=== PATIENT | female | born 1985 | race African-American/Black ===

== ENCOUNTER 2016-10-28 10:45 | Emergency (ER) | payer BC, OTHER ==
--- NOTE | 2016-10-28 11:46 | OBHP ---
Datetime: 10/28/2016 11:41 IP Adm Impression: Term, intrauterine IP Admit Plan: Discharge home Admit Comment, IP Provider: @ 37.5 wks c/o of decreased movmenets and vaginal discharge, denies ctx, vb. OB: x 1 FT, SAB x 3 [employer]: yuri hx of abnormal pap, fibroids, ovarian cyst, STI PMH: deies PSH; yuri FHX; non contibutory SHX: engateiv x 3 MEDS: PNV BPP 10/23 JULIO 6cm VE: /-2 VTX int act negative pooling A/P P1 @ 37.5 wks GA with Decreased movements with matneral and reassuring and well be ing - kick counts -f/u Saturday -labor precatuins -f/u BPP Pelvic Type - PN: Adequate Extremities - PN: Normal Abdomen - PN: Normal Back - PN: Normal Breast - PN: Not Done Lungs - PN: Normal Heart - PN: Normal Thyroid - PN: Normal Neurologic - PN: Normal HEENT - PN: Normal General - PN: Normal Presentation-Admit: Vertex FHR - Baseline A Provider: 135 Membranes, Provider: Ruptured Contraction Comments Provider: q 8 min Gestation - Est Wks by US: 37.5 IP Hx Assessment: The History has been Reviewed and is Current EGA AdmitDate IP: 37.5 Vital Signs Provider: Reviewed; Within Normal Limits IP Chief Complaint: Decreased movement NICHD Variability Prov Fetus A: Moderate 6-25bpm NICHD Accel Fetus A IP Provider: 15X15 FHR Category Provider Fetus A: Category I NICHD Decel Fetus A IP Provider: None Dilatation, Provider: 4 Effacement, Provider: 50 Station, Provider: -2 Genitourinary Exam: Normal DTRs - PN: Normal
--- NOTE | 2016-10-28 11:46 | OBDCSUM ---
Datetime: 10/28/2016 11:36 Discharged to, Provider: Home Follow up at, Provider: Dr Heath on saturday10-30-2016 Disch Instr Activity: Normal activity Disch Instr Diet: Regular Discharge Time: 10/28/2016 11:36 Disch Referrals: None Disch Activity Restrictions: No exercising; No lifting; No driving; Minimize walking; Minimize stair -climbing Discharge Comment, Provider: kick counts RTO saturday labor precautions
[2016-10-28 18:04] VITALS: BP 118/76; PULSE 89; RESP 18; TEMP 97; O2SAT 99
== END 2016-10-28 12:00 | disposition home or self-care (01) ==
LOC: C.EROB 10:45
DX: O36.8130 Decreased fetal movements, third trimester, not applicable or unspecified (principal); Z3A.37 37 weeks gestation of pregnancy

== ENCOUNTER 2016-10-30 19:48 | Inpatient (IN) | payer BC, OTHER ==
[2016-10-30] MEDS ORDERED: Oxytocin 30 UNIT 30 UNITS/500 ML BAG IV SCH (20:15)
--- NOTE | 2016-10-30 20:16 | OBHP ---
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 hx of aborma pap, fibroi, ovar yanet cyst, hx of herpes on Valtrex PMH: denies PSH: dXC MEDS: Valtrex, PNV A/P @ 38 wks in active labor admit to npo, ivf admission labs cont toco and efm analgies prn Pelvic Type - PN: Adequate Extremities - PN: Normal Abdomen - PN: Normal Back - PN: Normal Breast - PN: Normal Lungs - PN: Normal Heart - PN: Normal Thyroid - PN: Normal Neurologic - PN: Normal HEENT - PN: Normal General - PN: Normal Weight - Estimated: 3400 Presentation-Admit: Vertex FHR - Baseline A Provider: 150 Membranes, Provider: Bulging Contraction Comments Provider: q 3-4 min Comments, ACOG Physical Exam: exam, no active lesions Gestation - Est Wks by US: 38.0 IP Hx Assessment: The History has been Reviewed and is Current EGA AdmitDate IP: 38.0 Vital Signs Provider: Reviewed; Within Normal Limits IP Chief Complaint: Uterine contractions; Vaginal bleeding NICHD Variability Prov Fetus A: Moderate 6-25bpm NICHD Accel Fetus A IP Provider: 10X10 FHR Category Provider Fetus A: Category I NICHD Decel Fetus A IP Provider: None Dilatation, Provider: 5 Effacement, Provider: 60 Station, Provider: -2 Genitourinary Exam: Normal DTRs - PN: Normal
[2016-10-30] MEDS ORDERED: Penicillin G 5 Million Unit Vial IVPB ONE ×2 (20:25→21:01)
--- NOTE | 2016-10-30 20:25 | OBADHP ---
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 hx of aborma pap, fibroi, ovar yanet cyst, hx of herpes on Valtrex PMH: denies PSH: dXC MEDS: Valtrex, PNV A/P @ 38 wks in active labor admit to npo, ivf admission labs cont toco and efm analgies prn Pelvic Type - PN: Adequate Extremities - PN: Normal Abdomen - PN: Normal Back - PN: Normal Breast - PN: Normal Lungs - PN: Normal Heart - PN: Normal Thyroid - PN: Normal Neurologic - PN: Normal HEENT - PN: Normal General - PN: Normal Weight - Estimated: 3400 Presentation-Admit: Vertex FHR - Baseline A Provider: 150 Membranes, Provider: Bulging Contraction Comments Provider: q 3-4 min Comments, ACOG Physical Exam: exam, no active lesions Gestation - Est Wks by US: 38.0 IP Hx Assessment: The History has been Reviewed and is Current Vital Signs Provider: Reviewed; Within Normal Limits IP Chief Complaint: Uterine contractions; Vaginal bleeding NICHD Variability Prov Fetus A: Moderate 6-25bpm NICHD Accel Fetus A IP Provider: 10X10 FHR Category Provider Fetus A: Category I NICHD Decel Fetus A IP Provider: None Dilatation, Provider: 5 Effacement, Provider: 60 Station, Provider: -2 Genitourinary Exam: Normal DTRs - PN: Normal EGA AdmitDate IP: 38.0 IP Adm Impression: Term, intrauterine IP Admit Plan: Admit to unit; Initiate labor protocol
[2016-10-30] MEDS ORDERED: Oxytocin 30 UNIT 30 UNITS/500 ML BAG IV ONE (21:03)
[2016-10-30 21:04] LABS: BASO # 0.1 K/uL (0.0-0.2); BASO % 0.4 % (0.0-2.0); EOS # 0.2 K/uL (0.0-0.7); EOS % 1.2 % (0.0-4.0); HEMATOCRIT 35.5 % (34.0-47.0); LYMPH % 21.8 % (20.0-40.0); MEAN CELL VOLUME 85.9 fL (81.0-99.0); MEAN CORPUSCULAR HEMOGLOBIN 29.5 pg (27.0-31.0); MEAN CORPUSCULAR HGB CONC 34.4 g/dL (33.0-37.0); MEAN PLATELET VOLUME 10.3 fL (7.2-11.7); MONO # 0.9 K/uL (0.0-0.8); MONO % 6.6 % (0.0-10.0); WHITE BLOOD COUNT 13.9 K/uL (4.8-10.8)
[2016-10-30 21:12] LABS: CHLORIDE 102 mmol/L (98-107)
[2016-10-30 21:13] LABS: POTASSIUM 4.1 mmol/L (3.6-5.2); SODIUM 134 mmol/L (132-148)
[2016-10-30 21:15] LABS: ALB/GLOB RATIO 1.1 (1.0-2.1); AST/SGOT 15 U/L (14-36); BILIRUBIN,TOTAL 0.6 mg/dL (0.2-1.3); BLOOD UREA NITROGEN 3 mg/dL (7-17); CARBON DIOXIDE 24 mmol/L (22-30); GFR AFRICAN-AMERICAN > 60; TOTAL PROTEIN 6.7 g/dL (6.3-8.3)
[2016-10-30 21:16] LABS: ALKALINE PHOSPHATASE 141 U/L (38-126); ALT/SGPT 24 U/L (9-52); CALCIUM 9.5 mg/dl (8.6-10.4); GLUCOSE,RANDOM 76 mg/dL (65-105)
[2016-10-30 21:22] LABS: RBC URINE 20 /hpf (0-3); URINE BACTERIA FEW (<OCC); URINE BILIRUBIN NEGATIVE (NEGATIVE); URINE BLOOD 3+ (NEGATIVE); URINE COLOR Yellow (YELLOW); URINE GLUCOSE (UA) NORMAL (Normal); URINE KETONE NEGATIVE (NEGATIVE); URINE LEUKOCYTE ESTERASE 3+ Leu/uL (Negative); URINE PROTEIN NEGATIVE (NEGATIVE); URINE UROBILINOGEN NORMAL mg/dL (0.2-1.0); WBC URINE 71 /hpf (0-5)
[2016-10-30] MEDS: Lactated Ringer's 1,000 ML IV SCH (21:29)
[2016-10-31] MEDS ORDERED: Bupivacaine 0.125%/FentaNYL 200 ML EPI ONE (00:04)
[2016-10-31] MEDS: Lactated Ringer's 1,000 ML IV SCH ×2 (02:00)
[2016-10-31] MEDS ORDERED: Oxycodone/Acetaminophen 5/325 mg Tab PO PRN ×2 (02:31)
[2016-10-31] MEDS ORDERED: Benzocaine/Menthol 20%-0.5% Topical Spray (60 ml) TOP PRN (02:31)
[2016-10-31] MEDS ORDERED: Lidocaine 2% Inj (20ml) ONE (02:52)
--- NOTE | 2016-10-31 03:19 | OBDS ---
DELIVERY PERSONNEL Nurse Hand Therapist Certified: N/A Delivery Doctor: Talia Heath MD Scrub Nurse: N/A Corporate Planner: Angelina Brower RN Anesthesiologist: DR VAZ Filtrose Crusher: N/A Resident: N/A MATERNAL INFORMATION Delivery Anesthesia: Local Medications in Delivery: PITOCIN Estimated Blood Loss (ml): 200 Placenta Cultured: No Maternal Complications: None Provider Comments: pt was fully dilated and pushing. Band noted with no progress of head. verbal con sent give for episitomy and reports had previous episitomy Atruacmic, spontaneous delive rof head, f ollowed by delivery of anterior followed by posterior shoulder followed by delivery of body. Both ora l and nsaal passages of gissell baby were bulb suctioned .Umbilical cord was clamped and cut. Baby handed to mother on abdomen wt rn assistance. Cord blood collected and sent x 2. Spontaneous delivery of i ntact placenta with membranes. Biminal massage, funud firm. good hemostasis. Right mediolaterl epis itomy repaired with local anesthetic and 2-0 chromic. Good hemostasis no complications. live male inanta cephalic presentation agps 9/9 weight of 6lbs 14 ounces ebl 200ml LABOR SUMMARY EDC: 11/13/2016 00:00 No. Babies in Womb: 1 Attempted: No Labor Anesthesia: Epidural LABOR INFORMATION Onset of Labor: 10/30/2016 15:00 Complete Dilatation: 10/31/2016 02:28 Oxytocin: Augmentation Group B Beta Strep: Done, Result Unknown Antibiotics # of Doses: 2 Antibiotics Time of Last Dose: 0100 10/31/2016 MEMBRANES Membranes Rupture Method: Artificial Rupture of Membranes: 10/30/2016 20:38 Length of Rupture (hrs): 6.25 Amniotic Fluid Color: Clear Amniotic Fluid Amount: Moderate Amniotic Fluid Odor: Normal STAGES OF LABOR Stage 1 hrs: 11 Stage 1 min: 28 Stage 2 hrs: 0 Stage 2 min: 25 Stage 3 hrs: 0 Stage 3 min: 4 Total Time in Labor hrs: 11 Total Time in Labor min: 57 VAGINAL DELIVERY Episiotomy: Right Mediolateral Laceration Extension: N/A Laceration Type: None Laceration Repair: Yes Laceration Repair Note: RML episiotmy repaired with lidocine local anesthesi and 2-[address] Initial Vag Sponge Count: 1 LAP, 10 X-RAYS Final Vag Sponge Count: 1 LAP, 10 X-RAYS Initial Vag Sharps Count: 0 Final Vag Sharps Count: 1 Sponge Count Correct: Yes Count Comment: count correct BABY A INFORMATION Delivery Date/Time: 10/31/2016 02:53 Method of Delivery: Vaginal Born in Route : No : N/A Forceps: N/A Vacuum Extraction: N/A Shoulder Dystocia : No SHOULDER DYSTOCIA BABY A Delivery Date/Time: 10/31/2016 02:53 PRESENTATION/POSITION BABY A Presentation: Cephalic Cephalic Presentation: Vertex Breech Presentation: N/A PLACENTA INFORMATION BABY A Placenta Delivery Time : 10/31/2016 02:57 Placenta Method of Delivery: Spontaneous Placenta Status: Delivered SCORES BABY A Heart Rate 1 min: >100 bpm Resp Effort 1 min: Good Cry Reflex Irritability 1 min: Cough or Sneeze or Pulls Away Muscle Tone 1 min: Active Motion Color 1 min: Body Red Jacket, Extremities Blue Resuscitation Effort 1 min: N/A SCORE 1 MIN: 9 Heart Rate 5 min: >100 bpm Resp Effort 5 min: Good Cry Reflex Irritability 5 min: Cough or Sneeze or Pulls Away Muscle Tone 5 min: Active Motion Color 5 min: Body Red Jacket, Extremities Blue Resuscitation Effort 5 min: N/A SCORE 5 MIN: 9 INFORMATION BABY A Gestational Age at Delivery: 38.1 Gestational Status: Term Infant Outcome : Liveborn Infant Condition : Stable Infant Sex: Male IDENTIFICATION/MEDS BABY A ID Band Number: [id number] Sensor Applied: Yes Sensor Number: [id number] Sensor Location : Cord Clamp Vitamin K Given : Not Given Erythromycin Given: Not Given WEIGHT/LENGTH BABY A Birthweight (gms): 3110 Infant Weight (lb): 6 Weight (oz): 14 Length Inches: 19.00 Infant Length cms: 48.3 CORD INFORMATION BABY A No. Cord Vessels: #3 Nuchal Cord : N/A Nuchal Cord Other: none True Knot: 0 Cord Blood Taken: Yes Suction: None ASSESSMENT BABY A Infant Complications: None Infant Complications Other: none Physical Findings at Delivery: Within Normal Limits Respirations: Appears Normal Student Development Dean/ALS Called : No Infant Care By: Shon KELLY RN Transferred To: Nursery
[2016-10-31] MEDS: Multiple Vitamins Tab PO SCH (10:15)
[2016-11-01 07:49] LABS: BASO # 0.1 K/uL (0.0-0.2); BASO % 0.5 % (0.0-2.0); EOS # 0.3 K/uL (0.0-0.7); EOS % 2.1 % (0.0-4.0); HEMATOCRIT 32.4 % (34.0-47.0); LYMPH # 3.9 K/uL (1.0-4.3); LYMPH % 27.2 % (20.0-40.0); MEAN CORPUSCULAR HEMOGLOBIN 29.4 pg (27.0-31.0); MEAN CORPUSCULAR HGB CONC 33.8 g/dL (33.0-37.0); MEAN PLATELET VOLUME 10.4 fL (7.2-11.7); MONO # 0.8 K/uL (0.0-0.8); MONO % 5.7 % (0.0-10.0); NRBC % 0.1 % (0.0-2.0); RED CELL DISTRIBUTION WIDTH 13.1 % (11.5-14.5); WHITE BLOOD COUNT 14.3 K/uL (4.8-10.8)
[2016-11-01] MEDS: Multiple Vitamins Tab PO SCH (09:03)
[2016-11-01 17:05] VITALS: RESP 20
[2016-11-02 08:25] LABS: BASO # 0.1 K/uL (0.0-0.2); BASO % 0.6 % (0.0-2.0); EOS # 0.4 K/uL (0.0-0.7); EOS % 3.4 % (0.0-4.0); HEMATOCRIT 33.5 % (34.0-47.0); LYMPH # 3.2 K/uL (1.0-4.3); LYMPH % 26.6 % (20.0-40.0); MEAN CELL VOLUME 87.4 fL (81.0-99.0); MEAN CORPUSCULAR HGB CONC 33.2 g/dL (33.0-37.0); MEAN PLATELET VOLUME 9.9 fL (7.2-11.7); MONO # 0.8 K/uL (0.0-0.8); MONO % 6.6 % (0.0-10.0); RED CELL DISTRIBUTION WIDTH 13.1 % (11.5-14.5)
--- NOTE | 2016-11-02 08:48 | OBPPN ---
Datetime: 11/02/2016 08:47 PP Pain Prov: Within normal limits PP Nausea Prov: Denies PP Flatus Prov: Yes PP Breasts Prov: Normal PP Heart Prov: Normal PP Lungs Prov: Normal PP Abdomen/Uterus Prov: Normal PP Lochia Prov: Normal PP Vulva/Perineum Prov: Normal PP CVA Tenderness Prov: Normal PP Extremities Prov: Normal PP C/S Incision Prov: Not Applicable PP Progress Prov: Normal PP Impression Prov: Normal progression PP Plan Prov: Discharge PP Progress Note Prov: pt seen and examined doingw ell no0 complaitns vss pe see above a/p s/p ppd #2 stable for dc dc home rto 6 week precatuisn given IP PP Procedures: None Vital Signs Provider PP: Reviewed; Within Normal Limits Datetime: 11/01/2016 08:57 PP BM Prov: No
--- NOTE | 2016-11-02 08:48 | OBDCSUM ---
Datetime: 11/02/2016 08:46 Discharged to, Provider: Home Follow up at, Provider: Dr Heath Disch Instr Activity: Normal activity Disch Instr Diet: Regular Discharge Instructions, Provider: Routine instructions given Discharge Diagnosis, Provider: Term Delivered Discharge Time: 11/02/2016 08:46 Follow up in weeks, Provider: 6 weeks Disch Referrals: None Contraception discussed, Prov: Yes Disch Activity Restrictions: No sexual activity; Nothing in vagina - Virgil, tampons, douche
[2016-11-02] MEDS: Multiple Vitamins Tab PO SCH (11:02)
[2016-11-02 20:52] VITALS: BP 108/71; PULSE 75; TEMP 98; O2SAT 98
== END 2016-11-02 16:45 | disposition home or self-care (01) | DRG 775 ==
LOC: C.EROB 19:48 → C.4D 20:14 → C.4M 10-31 05:37
PROVIDERS: ADMIT Obstetrics & Gynecology; ATTEND Obstetrics & Gynecology
PROC: 10E0XZZ Delivery of Products of Conception, External Approach (ICD-10-PCS; principal; 2016-10-30)
PROC: 0W8NXZZ Division of Female Perineum, External Approach (ICD-10-PCS; 2016-10-30)
DX: O80 Encounter for full-term uncomplicated delivery (principal); Z37.0 Single live birth; Z3A.38 38 weeks gestation of pregnancy